=== PATIENT | female | born 2000 | race Caucasian/White ===

== ENCOUNTER 2021-10-30 20:31 | Observation (INO) | payer OTHER, SELFPAY ==
[2021-10-30] VITALS (10 sets, daily range): BP systolic 72–108; BP diastolic 47–62; PULSE 88–109; BMI 26.7
[2021-10-30] MEDS: LACTATED RINGERS 1,000 ML 125 ML IV CONT (21:28)
[2021-10-30] MEDS: ONDANSETRON INJ 4 MG/2 ML VIAL 8 MG IV PUSH (21:28)
[2021-10-30 21:41] LABS: Basophils Percent Auto 0.1 % (0.2-1.2); Hematocrit 35.7 % (37.0-47.0); Hemoglobin 12.3 g/dL (12.0-15.0); Immature Granulocyte Absolute 0.08 K/mm3 (0.00-0.031); Immature Granulocyte Percent A 0.6 % (0-0.5); Lymphocytes Absolute Auto 0.71 K/mm3 (0.9-3.2); Lymphocytes Percent Auto 5.1 % (18.3-44.2); Mean Corpuscular HGB Conc 34.5 g/dl (32-36); Mean Corpuscular Hemoglobin 32.2 pg (26-34); Mean Corpuscular Volume 93.5 fl (80-100); Mean Platelet Volume 11.1 fl (7.4-10.4); Monocytes Absolute Auto 0.6 K/mm3 (0.1-0.6); Neutrophils Absolute Auto 12.5 K/mm3 (1.3-6.7); Neutrophils Percent Auto 90.2 % (45.5-73.1); Platelet Count Result 167 k/mm3 (150-375); Red Blood Count 3.82 M/mm3 (4.2-5.4); Red Cell Distribution Width 12.4 % (11.5-14.5); White Blood Count 13.9 K/mm3 (4.5-10.0)
[2021-10-30 21:53] LABS: Alanine Aminotransferase 20 U/L (6-35); Albumin Level 3.7 g/dL (3.5-5.1); Alkaline Phosphatase 79 U/L (38-126); Anion Gap 8 mmol/L (8-16); Aspartate Amino Transferase 22 U/L (14-36); Bilirubin,Total 1.4 mg/dL (0.2-1.3); Blood Urea Nitrogen 9 mg/dL (7-17); Calcium 8.7 mg/dL (8.4-10.2); Carbon Dioxide 22 mmol/L (22-30); Chloride 105 mmol/L (98-107); Estimated CRCL calculation 131 ml/min; Estimated Glomerular Filt Rate > 60; Glucose 86 mg/dL (65-110); Potassium 3.9 mmol/L (3.4-5.0); Sodium 135 mmol/L (137-145)
[2021-10-30] MEDS: FLUCONAZOLE 150 MG TABLET PO (22:48)
--- NOTE | 2021-10-30 22:51 | OBADM ---
This patient, Ana M Benitez, admitted to the OB room OB Post 117 for observation. Patient/family oriented to hospital policies and general routines including ID bracelet, bed and alarms, visiting hours, pain management, procedures, bathroom and other care routines, personal items, smoking policy, room service/diet, and visiting hours. Patient/Family are encouraged to report perceived risks to care and to ask questions if they do not understand what they are told or what they should do.
--- NOTE | 2021-11-01 07:56 | P.PNOB_ITS ---
OB - Triage/Final Diagnosis Visit Information Date of evaluation: 10/30/21 Reason for evaluation: other (nausea) Comments/Additional reasons for admission: I have assessed the risk for this patient, Ana M Benitez, and determined that she would benefit from obser vation care. Evaluation Laboratory results: Laboratory Tests 10/30/21 10/30/21 21:26 21:26 WBC 13.9 H RBC 3.82 L Hgb 12.3 Hct 35.7 L MCV 93.5 MCH 32.2 MCHC 34.5 RDW 12.4 Plt Count 167 MPV 11.1 H Immature Gran % (Auto) 0.6 H Neut % (Auto) 90.2 H Lymph % (Auto) 5.1 L [place] % (Auto) 4.0 Eos % (Auto) 0.0 Baso % (Auto) 0.1 L Lymph # (Auto) 0.71 L [place] # (Auto) 0.6 Eos # (Auto) 0.0 Baso # (Auto) 0.0 Abs Immat Gran (auto) 0.08 H Absolute Neuts (auto) 12.5 H Absolute Nucleated RBC 0.0 Nucleated RBC % 0.0 Sodium 135 L Potassium 3.9 Chloride 105 Carbon Dioxide 22 Anion Gap 8 BUN 9 Creatinine 0.50 L Estim Creat Clear Calc 131 Estimated GFR > 60 Glucose 86 Calcium 8.7 Total Bilirubin 1.4 H AST 22 ALT 20 Alkaline Phosphatase 79 Total Protein 6.0 L Albumin 3.7
== END 2021-10-30 23:31 | disposition home or self-care (01) ==
PROVIDERS: Admitting Provider Student in an Organized Health Care Education/Training Program; Visit Provider Student in an Organized Health Care Education/Training Program
DX: O26.892 Other specified pregnancy related conditions, second trimester (principal); R11.0 Nausea; Z3A.26 26 weeks gestation of pregnancy
CPT/HCPCS: 36415; 80053; 85025; 96374; A9270; G0378; G0379; J2405; J7120

== ENCOUNTER 2021-12-08 14:34 | Observation (INO) | payer OTHER, SELFPAY ==
[2021-12-08 15:11] VITALS: BP 107/65; PULSE 89
[2021-12-08 15:22] VITALS: BMI 28.8
--- NOTE | 2021-12-08 15:23 | OBADM ---
This patient, Ana M Benitez, admitted to the OB room OB Post 115 for observation. Patient/family oriented to hospital policies and general routines including ID bracelet, bed and alarms, visiting hours, pain management, procedures, bathroom and other care routines, personal items, smoking policy, room service/diet, and visiting hours. Patient/Family are encouraged to report perceived risks to care and to ask questions if they do not understand what they are told or what they should do.
[2021-12-08 15:27] LABS: Appearance Urine Slightly Cloudy (Clear); Bilirubin Urine Negative (Negative); Blood Urine Negative (Negative); Color Urine Yellow (Yellow); Glucose Urine UA Negative (Negative); Ketones Urine Negative (Negative); Leukocyte Esterase Ur Negative LEU/UL (NEGATIVE); Nitrate Urine Negative (Negative); Protein Urine Negative (Negative); Specific Grav Ur 1.015 (1.001-1.035); Urobilinogen Urine 0.2 mg/dL (<2.0); pH Urine 6.5 (5.0-9.0)
[2021-12-08 15:30] LABS: Bacteria Urine Trace /hpf; Mucus Urine Rare /lpf; Squamous Epithelial Cell Urine Many /hpf (Few)
[2021-12-08 15:35] LABS: Add Urine Microscopic? YES
--- NOTE | 2021-12-08 16:02 | P.PNOB_ITS ---
OB - Triage/Final Diagnosis Visit Information Date of evaluation: 12/08/21 Reason for evaluation: threatened labor Comments/Additional reasons for admission: I have assessed the risk for this patient, Ana M Benitez, and determined that she would benefit from observation care. Evaluation Laboratory results: Laboratory Tests 12/08/21 15:04 Urine Color Yellow Urine Appearance Slightly cloudy Urine pH 6.5 Ur Specific [place] 1.015 Urine Protein Negative Urine Glucose (UA) Negative Urine Ketones Negative Ur Blood (Man) Negative Urine Nitrate Negative Urine Bilirubin Negative Urine Urobilinogen 0.2 Ur Leukocyte Esterase Negative Urine RBC 3-5 H Urine WBC 4-6 H Ur Squamous Epith Cells Many H Urine Bacteria Trace Urine Mucus Rare Vital signs: Vital Signs - 24 hr 12/08/21 15:11 12/08/21 15:22 Pulse Rate 89 Blood Pressure 107/65 Oxygen Delivery Room Air
[2021-12-08] MEDS: TERBUTALINE SULFATE 1 MG/ML VIAL 0.25 MG SUB-Q (16:12)
== END 2021-12-08 17:45 | disposition home or self-care (01) ==
PROVIDERS: Admitting Provider Obstetrics & Gynecology; Visit Provider Obstetrics & Gynecology
DX: O47.9 False labor, unspecified (principal); R11.2 Nausea with vomiting, unspecified; O26.899 Other specified pregnancy related conditions, unspecified trimester; Z3A.00 Weeks of gestation of pregnancy not specified
CPT/HCPCS: 81001; 87086; 96372; G0378; G0379; J3105

== ENCOUNTER 2021-12-22 10:48 | Outpatient (RCR) | payer OTHER, SELFPAY ==
[2021-12-22 11:51] VITALS: BP 92/46
== END 2022-02-04 15:10 | disposition home or self-care (01) ==
LOC: ANHOBOP 10:48
PROVIDERS: Visit Provider Student in an Organized Health Care Education/Training Program
DX: O36.8130 Decreased fetal movements, third trimester, not applicable or unspecified (principal); Z3A.00 Weeks of gestation of pregnancy not specified
CPT/HCPCS: 59025

== ENCOUNTER 2022-02-04 06:00 | Inpatient (IN) | payer OTHER, SELFPAY ==
[2022-02-04] VITALS (237 sets, daily range): BP systolic 63–143; BP diastolic 40–108; PULSE 74–194; TEMP 36.9–38; O2SAT 94–100; BMI 32.1
--- NOTE | 2022-02-04 06:09 | P.HP_ITS ---
H&P: HPI History of Present Illness Date/Time: 02/04/22 06:09 Chief Complaint: Section of labor at term Narrative: this is a 21-year-old 1 para 0 whose last menstrual period was 05/07/2021, EDC is 02/11/2022, who presents at 39 weeks gestation for induction of labor secondary to elevated blood pressures. Her had been otherwise uncomplicated. She has mildly elevated blood pressures. [facility] Family History Family History Grandparent Cervical cancer age 63 Sibling H/O: hysterectomy Hyperthyroidism Social History Social History Substance use: never Spiritual care concerns: No Meds Home Medications and Allergies Home Medications Medication Instructions Recorded Confirmed Type ondansetron 4 mg disintegrating 4 mg PO Q6H PRN Nausea And 10/30/21 Rx tablet Vomiting #30 tabs vitamin-ferrous sulfate 1 tablet PO DAILY 10/30/21 10/30/21 History 27 mg iron-folic acid 0.8 mg tablet Allergies Allergy/AdvReac Type Severity Reaction Status Date / Time ciprofloxacin Allergy Hives Verified 01/14/22 12:19 Assessment and Plan Assessment and plan (1) Term : Code(s): Z34.90 - Encounter for supervision of normal , unspecified, unspecified trimester Status: Acute Plan medical induction of labor. Spontaneous vaginal delivery expected. She has an epidural candidate. She is negative for group B strep
--- NOTE | 2022-02-04 06:39 | LDADM ---
This patient, Ana M Marin, was admitted to Labor/Delivery/Recovery 106 on 02/04/22 at 06:00. Plans for labor, pain management and were discussed with patient. Patient/family oriented to hospital policies and general routines including ID bracelet, bed and alarms, visiting hours, pain management, procedures, bathroom and other care routines, personal items, smoking policy, room service/diet and guest tray routines, security routines, and visiting hours. Patient/Family are encouraged to report perceived risks to care and to ask questions if they do not understand what they are told or what they should do. See OBIX for further documentation.
[2022-02-04 07:08] LABS: Basophils Percent Auto 0.2 % (0.2-1.2); Eosinophils Absolute Auto 0.1 K/mm3 (0-0.3); Eosinophils Percent Auto 0.5 % (0-4.4); Hematocrit 35.5 % (37.0-47.0); Hemoglobin 11.8 g/dL (12.0-15.0); Immature Granulocyte Absolute 0.04 K/mm3 (0.00-0.031); Immature Granulocyte Percent A 0.4 % (0-0.5); Lymphocytes Absolute Auto 2.82 K/mm3 (0.9-3.2); Lymphocytes Percent Auto 28.7 % (18.3-44.2); Mean Corpuscular HGB Conc 33.2 g/dl (32-36); Mean Corpuscular Hemoglobin 28.9 pg (26-34); Mean Platelet Volume 12.6 fl (7.4-10.4); Monocytes Absolute Auto 1.1 K/mm3 (0.1-0.6); Monocytes Percent Auto 11.2 % (2.6-8.5); Neutrophils Absolute Auto 5.8 K/mm3 (1.3-6.7); Platelet Count Result 153 k/mm3 (150-375); Red Blood Count 4.08 M/mm3 (4.2-5.4); Red Cell Distribution Width 13.7 % (11.5-14.5); White Blood Count 9.8 K/mm3 (4.5-10.0)
[2022-02-04] MEDS: ONDANSETRON INJ 4 MG/2 ML VIAL IV PUSH ×3 (07:08→21:08)
[2022-02-04] MEDS: OXYTOCIN 30 UNITS/NS 500 ML 30 UNITS/500 ML BAG 6 UNITS IV CONT (07:11)
[2022-02-04] MEDS: LACTATED RINGERS 1,000 ML 125 ML IV CONT ×3 (07:11→21:22)
[2022-02-04 08:48] LABS: Rapid Plasma Reagin Non-Reactive (NonReactive)
--- NOTE | 2022-02-04 11:17 | PM.OBPNLAB ---
Pain Control Date/time seen: 02/04/22 11:17 Pain control: tolerating well Pelvic Exam Dilation (cm): 3 Effacement (%): 80 station: -1 Amniotic membrane status: Leaking Contractions Monitor mode: Internal Contraction frequency: 3
--- NOTE | 2022-02-04 17:49 | PM.OBPNLAB ---
Pain Control Date/time seen: 02/04/22 17:49 Pain control: tolerating well and epidural Pelvic Exam Dilation (cm): 5 Effacement (%): 80 station: -1 Amniotic membrane status: Leaking Contractions Monitor mode: Internal Contraction frequency: 3
[2022-02-04] MEDS: CALCIUM CARBONATE (TUMS) 500 MG (200 MG ELEMENTAL) PO (18:27)
[2022-02-04] MEDS: AMPICILLIN 1 GM/NS 50 ML 1 GM/50 ML BAG IVPB (20:47)
--- NOTE | 2022-02-04 22:52 | P.PCNOB_ITS ---
OB - Delivery Note Procedure Delivery date: 02/04/22 Procedure: mil Induction method: AROM Delivery augmentation: Pitocin Delivery monitor: External FHT and Internal Uterine Route of delivery: Episiotomy description: None Laceration Description: Perineal - 1st Degree Delivery repair: vicryl Specimen: No Quantitative Blood Loss (ml): 159 Anesthesia type: Epidural Disposition: Floor Merino Baby Date of : 02/04/22 Time of : 22:40 Weeks of gestation at delivery: 40 Infant gender: Female presentation: vertex position: Right Occiput Anterior Placenta delivery description: Spontaneous Cord Vessel Description: 3 Vessels, Nuchal Cord and Loose
[2022-02-04] MEDS: OXYTOCIN 30 UNITS/NS 500 ML 30 UNITS/500 ML BAG 125 UNITS IV CONT (23:05)
--- NOTE | 2022-02-05 01:15 | PC.NURSE ---
Patient transferred to post room #281 per wheelchair from labor and delivery. Support person present. Oriented to unit, room, information board, rooming in, admission packet and security measures. Patient verbalizes understanding.
[2022-02-05 01:20] VITALS: BP 116/66; PULSE 85; RESP 18; TEMP 36.6
[2022-02-05] MEDS: ACETAMINOPHEN 325 MG TABLET 650 MG PO ×3 (01:29→21:17)
[2022-02-05 04:15] VITALS: BP 115/84; PULSE 92; RESP 20; TEMP 36.6
[2022-02-05 05:34] LABS: Hematocrit 32.3 % (37.0-47.0); Hemoglobin 10.6 g/dL (12.0-15.0)
--- NOTE | 2022-02-05 07:45 | PM.OBPNVD ---
OB - PN: Subj Subjective Date/time seen: 02/05/22 07:45 Patient comments: no complaints and pain well controlled baby status: doing well and nursing well OB - PN: Obj Data Labs CBC & Chem 7: 02/05/22 04:17 Labs: Laboratory Results - last 24 hr 02/04/22 02/04/22 02/05/22 06:36 06:36 04:17 Hgb 10.6 L Hct 32.3 L RPR Non-reactive Blood Type B Positive Antibody Screen Negative OB - PN A/P Plan day: 1 Plan: routine care Time Spent With Patient Time: Total time spent is greater than 50% in coordination of care (as documented) at patient's floor/unit and/or counseling patient: Time with patient: less than 15 minutes
[2022-02-05 08:30] VITALS: BP 119/78; PULSE 99; RESP 20; TEMP 36.4; O2SAT 100
[2022-02-05] MEDS: MULTIVIT/MIN/PREN/FOL AC/IRON TABLET 1 TAB PO (09:21)
[2022-02-05] MEDS: LANOLIN (LANSINOH) 7.5 GM CREAM 1 APPLIC TOPICAL (09:22)
[2022-02-05 11:45] VITALS: BP 133/72; PULSE 89; RESP 18; TEMP 37.2; O2SAT 100
--- NOTE | 2022-02-05 12:51 | WPDANLDPN2 ---
Anes-Prog Note L&D Date/Time: 02/05/22 12:51 Comfortable throughout: labor and delivery Neuraxial method: epidural Epidural/Spinal procedure site: clean & non-tender Neuro status: Neuro function grossly intact. Cardiovascular status: normal Respiratory status: normal Airway patency: baseline Mental status: baseline Post-Op hydration status: normal Vital Signs: Last Vital Signs Temp 36.4 C 02/05/22 08:30 Pulse 99 02/05/22 08:30 Resp 20 02/05/22 08:30 BP 119/78 02/05/22 08:30 Pulse Ox 100 02/05/22 08:30 O2 Del Method Room Air 02/04/22 06:37 Pain score (VAS): 06/28 I/O: Intake & Output 02/04/22 02/05/22 02/05/22 23:59 07:59 15:59 Intake Total 1000 500 Output Total 287 Balance 1000 213 Post-procedural complaints: none Patient feedback: Patient satisfied with anesthetic care.
[2022-02-05 15:30] VITALS: BP 128/75; PULSE 85; RESP 16; TEMP 37.1; O2SAT 100
[2022-02-05] MEDS: IBUPROFEN 600 MG TABLET PO (16:12)
[2022-02-05 19:45] VITALS: BP 134/68; PULSE 83; RESP 16; TEMP 36.8; O2SAT 100
--- NOTE | 2022-02-06 06:55 | PM.DS ---
DS: Admitting Diagnosis Discharge Date 02/06/2022 Admitting Diagnosis term DS: Discharge Diagnosis Discharge Diagnosis (1) Term : Code(s): Z34.90 - Encounter for supervision of normal , unspecified, unspecified trimester Status: Acute DS: Summary Hospital Course Reason for hospitalization: patient was admitted in active labor. She underwent spontaneous vaginal delivery. She was positive for group B strep and was prophylaxed as such. Her hospital course was unremarkable. Hospital Course: She underwent spontaneous vaginal delivery with the group B strep prophylaxis her hospital course unremarkable. She remained afebrile. She was up, voiding without difficulty, ambulating, breast-feeding, [place] without complaints. Time Spent with Patient Time attestation: Total time spent providing and/or coordinating discharge services: Discharge Plan Discharge Attending physician on discharge: Gordon Mendez Discharging Clinician: Gordon Mendez Patient Disposition: Home, Self-Care Activity: may shower, no straining and pelvic rest Diet: heart healthy Patient Instructions: Antibiotic Form Stand Alone Forms: General Discharge Information Follow-up/Referrals: Gordon Mendez MD [Physician] - Discharge Medications: Continued vit-ferrous sulfat-FA 27 mg iron- 0.8 mg Tablet 1 tablet PO DAILY ondansetron 4 mg Tablet,Disintegrating 4 mg PO Q6H PRN (Reason: Nausea And Vomiting) Qty: 30 0RF Date of admission: 02/04/22 06:00 Primary Care Provider: UNKNOWN,DOCTOR Admitting Provider: Juventino Blunt Attending physician on admission: Juventino Blunt Condition: Stable
--- NOTE | 2022-02-06 07:04 | PM.OBPNVD ---
OB - PN: Subj Subjective Date/time seen: 02/06/22 07:04 Patient comments: no complaints and pain well controlled baby status: doing well and nursing well OB - PN: Obj Data Labs CBC & Chem 7: 02/05/22 04:17 OB - PN A/P Plan day: 2 Plan: routine care, discharge home and follow up 6 weeks Time Spent With Patient Time: Total time spent is greater than 50% in coordination of care (as documented) at patient's floor/unit and/or counseling patient: Time with patient: less than 15 minutes
[2022-02-06 07:30] VITALS: BP 125/64; PULSE 88; RESP 16; TEMP 36.6; O2SAT 100
[2022-02-06] MEDS: IBUPROFEN 600 MG TABLET PO (07:33)
[2022-02-06] MEDS: MULTIVIT/MIN/PREN/FOL AC/IRON TABLET 1 TAB PO (07:33)
[2022-02-07 08:48] VITALS: BP 124/59; PULSE 82; RESP 20; TEMP 37.2; O2SAT 99
== END 2022-02-06 12:20 | disposition home or self-care (01) | DRG 560 ==
LOC: ANHOB2 02-06 09:54 → ANHLDR 02-07 12:32
PROVIDERS: Admitting Provider Obstetrics & Gynecology; Visit Provider Obstetrics & Gynecology
DX: O99.824 Streptococcus B carrier state complicating childbirth (principal); O69.81X0 Labor and delivery complicated by cord around neck, without compression, not applicable or unspecified; O70.0 First degree perineal laceration during delivery; O76 Abnormality in fetal heart rate and rhythm complicating labor and delivery; Z3A.39 39 weeks gestation of pregnancy; Z37.0 Single live birth
CPT/HCPCS: 36415; 85014; 85018; 85025; 86592; 86850; 86900; 86901; A9270; J0131; J0290; J2405; J2590; J2795; J7120

== ENCOUNTER 2023-07-18 08:38 | Emergency (ER) | payer OTHER, SELFPAY ==
[2023-07-18 08:42] VITALS: BP 121/73; PULSE 84; RESP 16; TEMP 36.2; O2SAT 100
--- NOTE | 2023-07-18 08:45 | ED.GENADULT ---
HPI - General Adult General Chief complaint: Nausea/Vomiting/Diarrhea Stated complaint: vomiting, 10 wk Time Seen by Provider: 07/18/23 08:43 History of Present Illness HPI narrative: 23-year-old female presented emergency department for evaluation nausea and vomiting. Patient is 10 weeks does follow-up with Dr. Andrew Don. Patient states that she has had some issues with nausea and vomiting but they have worsened over the course of the last day or so. Patient denies any associated abdominal pain denies any vaginal bleeding vaginal discharge. Related Data Home Medications Medication Instructions Recorded Confirmed vitamin-ferrous sulfate 1 tablet PO DAILY 10/30/21 02/04/22 27 mg iron-folic acid 0.8 mg tablet Allergies Allergy/AdvReac Type Severity Reaction Status Date / Time ciprofloxacin Allergy Hives Verified 01/14/22 12:19 Review of Systems Review of Systems: All systems reviewed & are unremarkable except as noted in HPI and below PMFSH Family History Family History Grandparent Cervical cancer age 63 Sibling H/O: hysterectomy Hyperthyroidism Social History Social History Smoking status: Never smoker Substance use: never Spiritual care concerns: No Exam Narrative: APPEARANCE: Well appearing, no pain, no distress, well-nourished. HEAD: normocephalic, atraumatic. EYES: PERRLA/EOMI, conjunctivae clear. NOSE: Normal no drainage EARS:TMS clear with good light reflex. THROAT: Pharynx clear, no exudate. NECK: Supple. No adenopathy, no masses. RESPIRATORY: Airway patent, respirations nonlabored. Clear to auscultation bilaterally, no rales, rhonchi, wheezing. CARDIOVASCULAR: Regular rate and rhythm without murmurs rubs or gallops. ABDOMINAL: Soft, nontender, nondistended, normal bowel sounds MUSCULOSKELETAL: Moves all extremities. Strength/ROM intact, No edema, No calf tenderness. NEURO: Alert. Cranial nerves II through XII intact. Grossly intact SKIN: Warm, dry. Normal Color Course Course Emergency Course: 23-year-old female presenting emergency department for evaluation of persistent nausea and vomiting. Patient is tolerating p.o. and was able to eat crackers. Patient afebrile with no leukocytosis and a stable hemoglobin no significant abnormalities on her CMP urine was concerning for urinary tract infection and urine cultures pending. Patient was started on Rocephin in the ED and patient will be discharged home with Keflex. Patient was encouraged to have close follow-up with OB Gyne. Patient will also be discharged home with some Zofran. All questions concerns were addressed patient was well-appearing at time of discharge. Vital Signs Vital signs: Vital Signs Temperature 97.1 F L 07/18/23 08:42 Pulse Rate 84 07/18/23 08:42 Respiratory Rate 16 07/18/23 08:42 Blood Pressure 121/73 07/18/23 08:42 Pulse Oximetry 100 07/18/23 08:42 Oxygen Delivery Room Air 07/18/23 08:42 Temperature 98.0 F 07/18/23 10:45 Pulse Rate 62 07/18/23 11:28 Respiratory Rate 15 07/18/23 11:28 Blood Pressure 110/65 07/18/23 11:28 Pulse Oximetry 100 07/18/23 11:28 Oxygen Delivery Room Air 07/18/23 08:42 Medical Decision Making Differential Diagnosis Differential Diagnosis: UTI, hyperemesis gravidarum, dehydration Vital Signs Vital Signs: Vital Signs Temperature 97.1 F L 07/18/23 08:42 Pulse Rate 84 07/18/23 08:42 Respiratory Rate 16 07/18/23 08:42 Blood Pressure 121/73 07/18/23 08:42 Pulse Oximetry 100 07/18/23 08:42 Oxygen Delivery Room Air 07/18/23 08:42 Temperature 98.0 F 07/18/23 10:45 Pulse Rate 62 07/18/23 11:28 Respiratory Rate 15 07/18/23 11:28 Blood Pressure 110/65 07/18/23 11:28 Pulse Oximetry 100 07/18/23 11:28 Oxygen Delivery Room Air 07/18/23 08:42
[2023-07-18 08:55] LABS: Basophils Percent Auto 0.4 % (0.2-1.2); Eosinophils Percent Auto 0.2 % (0-4.4); Hematocrit 39.7 % (37.0-47.0); Hemoglobin 13.6 g/dL (12.0-15.0); Immature Granulocyte Absolute 0.02 K/mm3 (0.00-0.031); Immature Granulocyte Percent A 0.2 % (0-0.5); Lymphocytes Absolute Auto 1.51 K/mm3 (0.9-3.2); Lymphocytes Percent Auto 18.6 % (18.3-44.2); Mean Corpuscular HGB Conc 34.3 g/dl (32-36); Mean Corpuscular Hemoglobin 30.1 pg (26-34); Mean Corpuscular Volume 87.8 fl (80-100); Mean Platelet Volume 11.3 fl (7.4-10.4); Monocytes Absolute Auto 0.5 K/mm3 (0.1-0.6); Monocytes Percent Auto 5.5 % (2.6-8.5); Neutrophils Absolute Auto 6.1 K/mm3 (1.3-6.7); Neutrophils Percent Auto 75.1 % (45.5-73.1); Platelet Count Result 185 k/mm3 (150-375); Red Blood Count 4.52 M/mm3 (4.2-5.4); Red Cell Distribution Width 12.4 % (11.5-14.5); White Blood Count 8.1 K/mm3 (4.5-10.0)
[2023-07-18 09:07] LABS: Alanine Aminotransferase 21 U/L (6-35); Albumin Level 4.5 g/dL (3.5-5.1); Alkaline Phosphatase 59 U/L (38-126); Anion Gap 9 mmol/L (8-16); Aspartate Amino Transferase 23 U/L (14-36); Bilirubin,Total 0.6 mg/dL (0.2-1.3); Blood Urea Nitrogen 7 mg/dL (7-17); Calcium 9.6 mg/dL (8.4-10.2); Carbon Dioxide 22 mmol/L (22-30); Chloride 106 mmol/L (98-107); Estimated Glomerular Filt Rate > 60; Glucose 93 mg/dL (65-110); Lipase 258 U/L (23-300); Potassium 4.2 mmol/L (3.4-5.0); Sodium 137 mmol/L (137-145)
[2023-07-18 09:11] LABS: Appearance Urine Cloudy (Clear); Bacteria Urine 4+ /hpf; Bilirubin Urine 1+ (Negative); Blood Urine Negative (Negative); Color Urine Dark Yellow (Yellow); Glucose Urine UA Negative (Negative); Ketones Urine 4+ mg/dL (Negative); Leukocyte Esterase Ur Trace LEU/UL (Negative); Need Manual Microscopic Reviewed; Nitrate Urine Negative (Negative); Non Pathogenic Casts >20; Protein Urine 1+ mg/dL (Negative); Specific Grav Ur 1.032 (1.001-1.035); Squamous Epithelial Cell Urine Many /hpf (Few); WBC Urine 21-50 /hpf; pH Urine 5.5 (5.0-9.0)
[2023-07-18 09:12] LABS: Add Urine Microscopic? YES
[2023-07-18] MEDS: ACETAMINOPHEN 500 MG TABLET 1000 MG PO (09:44)
[2023-07-18] MEDS: SODIUM CHLORIDE 0.9% IV 1,000 ML 999 ML IV CONT (09:45)
[2023-07-18] MEDS: ONDANSETRON INJ 4 MG/2 ML VIAL IV PUSH (09:45)
[2023-07-18 09:48] VITALS: BP 103/59; PULSE 79; RESP 16; TEMP 36.6; O2SAT 100
[2023-07-18 10:45] VITALS: BP 106/68; PULSE 78; RESP 16; TEMP 36.7; O2SAT 100
[2023-07-18 11:28] VITALS: BP 110/65; PULSE 62; RESP 15; O2SAT 100
== END 2023-07-18 11:29 | disposition home or self-care (01) ==
PROVIDERS: Emergency Provider Emergency Medicine; PCP Obstetrics & Gynecology
DX: O23.41 Unspecified infection of urinary tract in pregnancy, first trimester (principal); N39.0 Urinary tract infection, site not specified; O21.9 Vomiting of pregnancy, unspecified; Z3A.10 10 weeks gestation of pregnancy
CPT/HCPCS: 36415; 80053; 81001; 83690; 85025; 87086; 96365; 96375; 99284; A9270; J0696; J2405; J7030

== ENCOUNTER 2023-08-08 11:30 | Observation (INO) | payer OTHER, SELFPAY ==
[2023-08-08] VITALS (8 sets, daily range): BP systolic 92–128; BP diastolic 51–67; PULSE 74–88; BMI 21.6
[2023-08-08] MEDS: DEXTROSE 5%/LACTATED RINGERS 1,000 ML 999 ML IV CONT (12:16)
[2023-08-08] MEDS: SCOPOLAMINE 1 MG PATCH 1 PATCH TRANSDERM (12:16)
[2023-08-08] MEDS: ONDANSETRON INJ 4 MG/2 ML VIAL IV PUSH (12:16)
--- NOTE | 2023-08-08 12:23 | OBADM ---
This patient, Ana M Marin, admitted to the OB room OB Post 113 for observation. Patient/family oriented to hospital policies and general routines including ID bracelet, bed and alarms, visiting hours, pain management, procedures, bathroom and other care routines, personal items, smoking policy, room service/diet, and visiting hours. Patient/Family are encouraged to report perceived risks to care and to ask questions if they do not understand what they are told or what they should do.
[2023-08-08 12:42] LABS: Basophils Percent Auto 0.1 % (0.2-1.2); Eosinophils Percent Auto 0.1 % (0-4.4); Hematocrit 37.1 % (37.0-47.0); Immature Granulocyte Absolute 0.03 K/mm3 (0.00-0.031); Immature Granulocyte Percent A 0.4 % (0-0.5); Lymphocytes Absolute Auto 1.46 K/mm3 (0.9-3.2); Lymphocytes Percent Auto 19.5 % (18.3-44.2); Mean Corpuscular Hemoglobin 30.7 pg (26-34); Mean Corpuscular Volume 87.5 fl (80-100); Mean Platelet Volume 11.3 fl (7.4-10.4); Monocytes Absolute Auto 0.5 K/mm3 (0.1-0.6); Monocytes Percent Auto 6.5 % (2.6-8.5); Neutrophils Absolute Auto 5.5 K/mm3 (1.3-6.7); Neutrophils Percent Auto 73.4 % (45.5-73.1); Platelet Count Result 184 k/mm3 (150-375); Red Blood Count 4.24 M/mm3 (4.2-5.4); White Blood Count 7.5 K/mm3 (4.5-10.0)
[2023-08-08 12:44] LABS: Alanine Aminotransferase 102 U/L (6-35); Albumin Level 3.9 g/dL (3.5-5.1); Alkaline Phosphatase 53 U/L (38-126); Anion Gap 5 mmol/L (8-16); Aspartate Amino Transferase 42 U/L (14-36); Blood Urea Nitrogen 4 mg/dL (7-17); Carbon Dioxide 24 mmol/L (22-30); Chloride 108 mmol/L (98-107); Estimated CRCL calculation 157 ml/min; Estimated Glomerular Filt Rate > 60; Glucose 82 mg/dL (65-110); Potassium 3.8 mmol/L (3.4-5.0); Sodium 137 mmol/L (137-145)
--- NOTE | 2023-08-08 12:53 | PM.IMHP ---
H&P: HPI History of Present Illness Date/Time: 08/08/23 12:53 Chief Complaint: Nausea during Narrative: is a 23 year 2 para 1 about 13 weeks gestation with severe hyperemesis gravidarum. She has been able to keep anything down. She has noted normal intrauterine . [facility] Family History Family History Grandparent Cervical cancer age 63 Sibling H/O: hysterectomy Hyperthyroidism Social History Social History Smoking status: Never smoker Substance use: never Spiritual care concerns: No Meds Home Medications and Allergies Home Medications Medication Instructions Recorded Confirmed Type ondansetron 4 mg disintegrating 4 mg PO Q6H PRN Nausea And 10/30/21 02/04/22 Rx tablet Vomiting #30 tabs vitamin-ferrous sulfate 1 tablet PO DAILY 10/30/21 02/04/22 History 27 mg iron-folic acid 0.8 mg tablet cephalexin 500 mg capsule 500 mg PO Q8H 7 days #21 caps 07/18/23 Rx ondansetron 4 mg disintegrating 4 mg PO Q8H PRN nausea and 07/18/23 Rx tablet vomiting #20 tabs Allergies Allergy/AdvReac Type Severity Reaction Status Date / Time ciprofloxacin Allergy Hives Verified 01/14/22 12:19 Vital Signs Vital Signs - 24 hr 08/08/23 11:41 08/08/23 11:45 08/08/23 12:00 Pulse Rate 78 88 88 Blood Pressure 128/67 115/60 110/60 08/08/23 12:30 08/08/23 12:45 Pulse Rate 77 80 Blood Pressure 108/53 L 92/63 L Exam Const: General: cooperative and comfortable Nutritional Appearance: average body habitus Orientation/consciousness: oriented to person, oriented to place and oriented to time HENMT: Face/Nose/Sinus: Normal nasal mucous membranes and turbinates present ( Dry) Resp: Effort & Inspection: normal respiratory effort Cardio: Rate: regular rate Rhythm: regular rhythm Heart sounds: S1 normal heart sound present and S2 normal heart sound present GI: Inspection: normal to inspection H&P: Results Labs Labs: Short CBC 08/08/23 Range/Units 12:05 WBC 7.5 (4.5-10.0) K/mm3 Hgb 13.0 (12.0-15.0) g/dL Hct 37.1 (37.0-47.0) % Plt Count 184 (150-375) k/mm3 BMP 08/08/23 12:05 Sodium 137 Potassium 3.8 Chloride 108 H Carbon Dioxide 24 BUN 4 L Creatinine 0.40 L Glucose 82 Calcium 9.0 Liver Function 08/08/23 Range/Units 12:05 Total Bilirubin 1.0 (0.2-1.3) mg/dL AST 42 H (14-36) U/L ALT 102 H (6-35) U/L Alkaline Phosphatase 53 (38-126) U/L Albumin 3.9 (3.5-5.1) g/dL Assessment and Plan Assessment and plan (1) Hyperemesis gravidarum: Code(s): O21.0 - Mild hyperemesis gravidarum Status: Acute Plan IV hydration and support
--- NOTE | 2023-08-08 13:35 | PC.NURSE ---
1245--Dr. Andrew Don at [facility]. [facility]'s doppled. Plan of care discussed.
[2023-08-08 14:29] LABS: Appearance Urine Cloudy (Clear); Bacteria Urine 1+ /hpf; Bilirubin Urine Negative (Negative); Blood Urine Negative (Negative); Color Urine Yellow (Yellow); Glucose Urine UA 3+ mg/dL (Negative); Ketones Urine 1+ mg/dL (Negative); Leukocyte Esterase Ur Negative LEU/UL (Negative); Nitrate Urine Negative (Negative); Non Pathogenic Casts 0-2; Protein Urine Negative (Negative); RBC Urine 0-2 /hpf (0-2); Specific Grav Ur 1.023 (1.001-1.035); Squamous Epithelial Cell Urine Moderate /hpf (Few); Urobilinogen Urine 0.2 mg/dL (<2.0); WBC Urine 0-5 /hpf; pH Urine 7.5 (5.0-9.0)
[2023-08-08 14:43] LABS: Add Urine Microscopic? YES
--- NOTE | 2023-08-08 15:28 | PC.NURSE ---
1520--Pt reports feeling better-has kept down solid food with no nausea and requests to be discharged.
--- NOTE | 2023-08-10 06:47 | PM.OBTRLD ---
OB - Triage/Final Diagnosis Visit Information Date of evaluation: 08/09/23 Reason for evaluation: other (hyperemesis gravidarum) Comments/Additional reasons for admission: I have assessed the risk for this patient, Ana M Marin, and determined that she would benefit from observation care. Evaluation Laboratory results: Laboratory Tests 08/08/23 12:05 WBC 7.5 RBC 4.24 Hgb 13.0 Hct 37.1 MCV 87.5 MCH 30.7 MCHC 35.0 RDW 13.0 Plt Count 184 MPV 11.3 H Immature Gran % (Auto) 0.4 Neut % (Auto) 73.4 H Lymph % (Auto) 19.5 [place] % (Auto) 6.5 Eos % (Auto) 0.1 Baso % (Auto) 0.1 L Lymph # (Auto) 1.46 [place] # (Auto) 0.5 Eos # (Auto) 0.0 Baso # (Auto) 0.0 Abs Immat Gran (auto) 0.03 Absolute Neuts (auto) 5.5 Absolute Nucleated RBC 0.0 Nucleated RBC % 0.0 Sodium 137 Potassium 3.8 Chloride 108 H Carbon Dioxide 24 Anion Gap 5 L BUN 4 L Creatinine 0.40 L Estim Creat Clear Calc 157 Estimated GFR > 60 Glucose 82 Calcium 9.0 Total Bilirubin 1.0 AST 42 H ALT 102 H Alkaline Phosphatase 53 Total Protein 7.0 Albumin 3.9 Urine Color Yellow Urine Appearance Cloudy H Urine pH 7.5 Ur Specific [place] 1.023 Urine Protein Negative Urine Glucose (UA) 3+ H Urine Ketones 1+ H Ur Blood (Man) Negative Urine Nitrate Negative Urine Bilirubin Negative Urine Urobilinogen 0.2 Leukocyte Esterase Rfl Negative Urine RBC 0-2 Urine WBC 0-5 Ur Squamous Epith Cells Moderate Urine Bacteria 1+ H Urine Casts 0-2
== END 2023-08-08 15:45 | disposition home or self-care (01) ==
PROVIDERS: Admitting Provider Obstetrics & Gynecology; Visit Provider Obstetrics & Gynecology
DX: O21.0 Mild hyperemesis gravidarum (principal); Z3A.13 13 weeks gestation of pregnancy
CPT/HCPCS: 36415; 80053; 81001; 85025; 96374; A9270; G0378; G0379; J2405; J7121

== ENCOUNTER 2023-12-14 14:03 | Outpatient (CLI) | payer OTHER, SELFPAY ==
[2023-12-14 14:30] VITALS: BP 119/65; PULSE 104
[2023-12-14 14:43] LABS: Appearance Urine Clear (Clear); Bilirubin Urine Negative (Negative); Blood Urine Negative (Negative); Color Urine Yellow (Yellow); Glucose Urine UA Negative (Negative); Ketones Urine Negative (Negative); Leukocyte Esterase Ur Negative LEU/UL (Negative); Nitrate Urine Negative (Negative); Protein Urine Negative (Negative); Specific Grav Ur 1.019 (1.001-1.035); pH Urine 6.5 (5.0-9.0)
[2023-12-14 14:44] LABS: Add Urine Microscopic? NO
[2023-12-14 14:45] VITALS: BMI 29.0
[2023-12-14 14:46] VITALS: BP 98/76; PULSE 104
--- NOTE | 2023-12-14 14:46 | LDADM ---
This patient, Ana M Marin, was admitted to OB Post 115 on at 14:03. Plans for labor, pain management and were discussed with patient. Patient/family oriented to hospital policies and general routines including ID bracelet, bed and alarms, visiting hours, pain management, procedures, bathroom and other care routines, personal items, smoking policy, room service/diet and guest tray routines, security routines, and visiting hours. Patient/Family are encouraged to report perceived risks to care and to ask questions if they do not understand what they are told or what they should do. See OBIX for further documentation.
--- NOTE | 2023-12-14 14:59 | PC.NURSE ---
Patient admitted to L&D observation at 1400 with complaints of experiencing a large gush of fluid at 1340 followed by intermittent back pain that she rates a 6/10 on the pain scale. Patient has no complications with this . ROM+ and UA sent on patient. ROM+ negative and no fluid was noted. UA was normal. Called Dr. Andrew Don with patient complaints and results. Verbal orders received to discharge patient to home and RN may give patient Tylenol and one time dose of Flexeril before discharge. RN discussed medication options with patient. Patient states she feels much better and declines Tylenol and Flexeril at this time. Patient states she would like to go home and will use heat intermittently on back if pain persists. Patient has no questions at this time.
== END 2023-12-14 15:07 ==
LOC: ANHOBOP 14:04 → ANHOBPP 14:07
PROVIDERS: Visit Provider Obstetrics & Gynecology
DX: O41.8X90 Other specified disorders of amniotic fluid and membranes, unspecified trimester, not applicable or unspecified (principal); Z3A.00 Weeks of gestation of pregnancy not specified
CPT/HCPCS: 81003; 84112; 99199

== ENCOUNTER 2024-02-01 04:57 | Inpatient (IN) | payer OTHER, SELFPAY ==
[2024-02-01] VITALS (275 sets, daily range): BP systolic 51–129; BP diastolic 34–106; PULSE 25–171; RESP 18; TEMP 36.6–37.1; O2SAT 71–100; BMI 30.4
[2024-02-01 06:02] LABS: Basophils Percent Auto 0.3 % (0.2-1.2); Eosinophils Absolute Auto 0.1 K/mm3 (0-0.3); Eosinophils Percent Auto 0.7 % (0-4.4); Hematocrit 38.4 % (37.0-47.0); Hemoglobin 12.4 g/dL (12.0-15.0); Immature Granulocyte Absolute 0.05 K/mm3 (0.00-0.031); Immature Granulocyte Percent A 0.5 % (0-0.5); Lymphocytes Absolute Auto 2.53 K/mm3 (0.9-3.2); Lymphocytes Percent Auto 25.4 % (18.3-44.2); Mean Corpuscular HGB Conc 32.3 g/dl (32-36); Mean Corpuscular Volume 89.7 fl (80-100); Mean Platelet Volume 11.2 fl (7.4-10.4); Monocytes Percent Auto 10.4 % (2.6-8.5); Neutrophils Absolute Auto 6.3 K/mm3 (1.3-6.7); Neutrophils Percent Auto 62.7 % (45.5-73.1); Platelet Count Result 164 k/mm3 (150-375); Red Blood Count 4.28 M/mm3 (4.2-5.4); Red Cell Distribution Width 13.8 % (11.5-14.5)
[2024-02-01] MEDS: CALCIUM CARBONATE (TUMS) 500 MG (200 MG ELEMENTAL) PO (06:41)
[2024-02-01 06:53] LABS: HIV 1/2 Ab P24 Ag Result Negative (Negative)
--- NOTE | 2024-02-01 07:03 | WPDANESEPP ---
Anes - Eval Pre Procedure Procedure: labor epidural Date/Time: 02/01/24 07:03 Surgeon: jennifer Preop Diagnosis: pain during labor Pre Op Diagnosis: IOL Patient Data Age: 23 Gender: F Height: 1.65 m Weight: 83 kg Last Vital Signs Temp 36.6 C 02/01/24 06:41 Pulse 88 02/01/24 07:00 BP 101/59 L 02/01/24 07:00 Pulse Ox 98 02/01/24 06:59 O2 Del Method Room Air 02/01/24 05:37 Allergies Allergy/AdvReac Type Severity Reaction Status Date / Time ciprofloxacin Allergy Hives Verified 01/13/24 14:44 Home Medications Medication Instructions Recorded Confirmed Type vitamin-ferrous sulfate 1 tablet PO DAILY 10/30/21 01/13/24 History 27 mg iron-folic acid 0.8 mg tablet Laboratory Tests 02/01/24 05:53 WBC 10.0 K/mm3 (4.5-10.0) RBC 4.28 M/mm3 (4.2-5.4) Hgb 12.4 g/dL (12.0-15.0) Hct 38.4 % (37.0-47.0) MCV 89.7 fl (80-100) MCH 29.0 pg (26-34) MCHC 32.3 g/dl (32-36) RDW 13.8 % (11.5-14.5) Plt Count 164 k/mm3 (150-375) MPV 11.2 H fl (7.4-10.4) Immature Gran % (Auto) 0.5 % (0-0.5) Neut % (Auto) 62.7 % (45.5-73.1) Lymph % (Auto) 25.4 % (18.3-44.2) [place] % (Auto) 10.4 H % (2.6-8.5) Eos % (Auto) 0.7 % (0-4.4) Baso % (Auto) 0.3 % (0.2-1.2) Lymph # (Auto) 2.53 K/mm3 (0.9-3.2) [place] # (Auto) 1.0 H K/mm3 (0.1-0.6) Eos # (Auto) 0.1 K/mm3 (0-0.3) Baso # (Auto) 0.0 K/mm3 (0.0-0.1) Abs Immat Gran (auto) 0.05 H K/mm3 (0.00-0.031) Absolute Neuts (auto) 6.3 K/mm3 (1.3-6.7) Absolute Nucleated RBC 0.000 K/mm3 (0.0-0.012) Nucleated RBC % 0.0 % (0.0-0.2) RPR Pending HIV 1&2 Ab/P24 Ag 4thGn Negative (Negative) Patient hx anesthesia problems: none Family hx anesthesia problems: none Results Review: All pre-operative results and documents have been reviewed as part of the pre-operative evaluation. REPLACED BY [facility] Past Medical History Medical History (Updated 02/01/24 @ 07:04 by Celia Tesfaye CRNA) Anxiety Migraines, neuralgic Obesity (BMI 30-39.9) Family History Family History Grandparent Cervical cancer age 63 Sibling H/O: hysterectomy Hyperthyroidism Social History Social History Smoking status: Never smoker Substance use: never Do You Feel Safe in your Home?: Yes Lack of Transportation: No Lack of Food: Never True Current Housing: I Have Housing Concerned About Future Housing: No Difficulty Paying Gas/Electric Bills: No Difficulty Paying for Meds: No Currently Unemployed: No Education: High School Diploma/GED Difficulty w/ Childcare or Family Care: No Spiritual care concerns: No Exam Day of Procedure 02/01/24 07:03
[2024-02-01] MEDS: OXYTOCIN 30 UNITS/NS 500 ML 30 UNITS/500 ML BAG IV CONT (07:28)
[2024-02-01] MEDS: LACTATED RINGERS 1,000 ML 125 ML IV CONT ×3 (07:29→11:00)
--- NOTE | 2024-02-01 07:35 | PM.IMHP ---
H&P: HPI History of Present Illness Date/Time: 02/01/24 07:35 Chief Complaint: Term Narrative: this is a 23-year-old 2 para 1 whose last menstrual period was 04/17/2010 and EDC is 02/08/2024, presents at 39 weeks gestation for induction of labor. Her cervix is favorable. She is negative for B strep. [facility] Past Medical History Medical History Anxiety Migraines, neuralgic Obesity (BMI 30-39.9) Family History Family History Grandparent Cervical cancer age 63 Sibling H/O: hysterectomy Hyperthyroidism Social History Social History Smoking status: Never smoker Substance use: never Do You Feel Safe in your Home?: Yes Lack of Transportation: No Lack of Food: Never True Current Housing: I Have Housing Concerned About Future Housing: No Difficulty Paying Gas/Electric Bills: No Difficulty Paying for Meds: No Currently Unemployed: No Education: High School Diploma/GED Difficulty w/ Childcare or Family Care: No Spiritual care concerns: No Meds Home Medications and Allergies Home Medications Medication Instructions Recorded Confirmed Type vitamin-ferrous sulfate 1 tablet PO DAILY 10/30/21 01/13/24 History 27 mg iron-folic acid 0.8 mg tablet Allergies Allergy/AdvReac Type Severity Reaction Status Date / Time ciprofloxacin Allergy Hives Verified 01/13/24 14:44 Vital Signs Vital Signs - 24 hr 02/01/24 05:37 02/01/24 06:29 02/01/24 06:31 Temperature Pulse Rate 91 Blood Pressure 112/68 Pulse Oximetry 98 Oxygen Delivery Room Air 02/01/24 06:32 02/01/24 06:34 02/01/24 06:39 Temperature Pulse Rate 131 H Blood Pressure 124/106 H Pulse Oximetry 97 97 Oxygen Delivery 02/01/24 06:41 02/01/24 06:44 02/01/24 06:45 Temperature 97.9 F Pulse Rate 94 97 Blood Pressure 108/67 109/68 Pulse Oximetry 98 Oxygen Delivery 02/01/24 06:49 02/01/24 06:54 02/01/24 06:59 Temperature Pulse Rate Blood Pressure Pulse Oximetry 97 97 98 Oxygen Delivery 02/01/24 07:00 02/01/24 07:04 02/01/24 07:09 Temperature Pulse Rate 88 Blood Pressure 101/59 L Pulse Oximetry 98 100 Oxygen Delivery 02/01/24 07:14 02/01/24 07:15 02/01/24 07:19 Temperature Pulse Rate 94 Blood Pressure 105/64 Pulse Oximetry 100 100 Oxygen Delivery 02/01/24 07:24 02/01/24 07:29 02/01/24 07:34 Temperature Pulse Rate Blood Pressure Pulse Oximetry 100 100 100 Oxygen Delivery Exam Const: General: cooperative, healthy appearing and comfortable Nutritional Appearance: average body habitus Orientation/consciousness: oriented to person, oriented to place and oriented to time HENMT: Head: normal to inspection Resp: Effort & Inspection: normal respiratory effort Cardio: Rate: regular rate Rhythm: regular rhythm Heart sounds: S1 normal heart sound present and S2 normal heart sound present GI: Inspection: normal to inspection ( Gravid soft uterus) : External Female Exam: normal external appearance Speculum Exam - Vagina: normal appearance of the vagina Speculum Exam - Cervix: normal appearance of the cervix ( 3/80/1. AROM clear. FHTs were reassuring) H&P: Results Labs Labs: Short CBC 02/01/24 Range/Units 05:53 WBC 10.0 (4.5-10.0) K/mm3 Hgb 12.4 (12.0-15.0) g/dL Hct 38.4 (37.0-47.0) % Plt Count 164 (150-375) k/mm3 Assessment and Plan Assessment and plan (1) Term : Code(s): Z34.90 - Encounter for supervision of normal , unspecified, unspecified trimester Status: Acute Assessment and Plan: medical induction of labor. Spontaneous vaginal delivery is expected. She is an epidural candidate
[2024-02-01 10:32] LABS: Rapid Plasma Reagin Non-Reactive (NonReactive)
--- NOTE | 2024-02-01 12:20 | PM.OBPNLAB ---
Pain Control Date/time seen: 02/01/24 12:20 Pain control: tolerating well and epidural Pelvic Exam Dilation (cm): 5 Effacement (%): 90 station: -1
[2024-02-01 13:15] LABS: Amphetamine Screen Urine Negative (Negative); Barbiturate Screen Urine Negative (Negative); Benzodiazepines Screen Urine Negative (Negative); Cannabinoid Screen Urine Negative (Negative); Cocaine Screen Urine Negative (Negative); Methadone Screen Urine Negative (Negative); Opiate Screen Urine Negative (Negative); Phencyclidine Screen Urine Negative (Negative)
[2024-02-01] MEDS: ACETAMINOPHEN 500 MG TABLET 1000 MG PO (15:43)
--- NOTE | 2024-02-01 16:13 | P.PCNOB_ITS ---
OB - Vaginal Delivery Note Procedure Delivery date: 02/01/24 Events: Elective Induction of Labor Induction method: AROM Delivery augmentation: Pitocin Delivery monitor: External FHT and External Uterine Route of delivery: Episiotomy description: None Laceration Description: None Specimen: No Quantitative Blood Loss (ml): 161 Anesthesia type: Epidural Disposition: Floor Complications: No immediate complications Narrative: Patient was admitted for induction of labor at term reversal rupture membranes performed the morning as to progress remarkable for stage of labor she had epidural anesthesia placed when she was complete she pushed delivered the head spontaneously in the CHERYLE position. Anterior posterior shoulder delivered spontaneously. Cord clamped x2 and cut. In the passed off the table given Apgars of 8 [id number] 9 [id number]. Cord blood was drawn. Placenta delivered intact spontaneously. Twenty of Pitocin placed IV to help firm the uterus. After aspect the lateral sidewalls no tears or lacerations were noted. Mom and baby uterine fine time of dictation [place] Baby Date of : 02/01/24 Time of : 15:58 Gestational Age by Date: 39 Infant gender: Male presentation: vertex position: Right Occiput Anterior Placenta delivery description: Spontaneous Cord Vessel Description: 3 Vessels score one minute: 9 score five minutes: 9
[2024-02-01] MEDS: OXYTOCIN 30 UNITS/NS 500 ML 30 UNITS/500 ML BAG 125 UNITS IV CONT (16:14)
--- NOTE | 2024-02-01 16:15 | PM.OBPRVD ---
OB - Vaginal Delivery Note Procedure Delivery date: 02/01/24 Events: Elective Induction of Labor Laceration Description: None Anesthesia type: Epidural Baby Date of : 02/01/24 Time of : 15:58 Gestational Age by Date: 39 gender: Male presentation: vertex position: Right Occiput Anterior Placenta delivery description: Spontaneous Cord Vessel Description: 3 Vessels score one minute: 9 score five minutes: 9
--- NOTE | 2024-02-01 16:15 | PM.DS ---
DS: Admitting Diagnosis Discharge Date 02/02/2024 Admitting Diagnosis term DS: Discharge Diagnosis Discharge Diagnosis (1) Term : Code(s): Z34.90 - Encounter for supervision of normal , unspecified, unspecified trimester Status: Acute DS: Summary Hospital Course Reason for hospitalization: patient was admitted for induction of labor on and underwent spontaneous vaginal delivery under epidural anesthesia. Hospital Course: Patient's hospital course Was unremarkable. She was voiding without difficulty i she was without complaints. she remained afebrile. She was up, eating regular diet, ambulating, generally without complaints. Time Spent with Patient Time attestation: Total time spent providing and/or coordinating discharge services: Exam Const: General: cooperative, healthy appearing and comfortable Nutritional Appearance: average body habitus Orientation/consciousness: oriented to person, oriented to place and oriented to time HENMT: Head: normal to inspection Resp: Effort & Inspection: normal respiratory effort Cardio: Rate: regular rate Rhythm: regular rhythm Heart sounds: S1 normal heart sound present and S2 normal heart sound present GI: Inspection: normal to inspection ( Fundus firm below the umbilicus) DS: Data Data Completed and Pending Labs on day of discharge: Labs from last 24 hours 02/01/24 02/01/24 12:44 05:53 WBC 10.0 RBC 4.28 Hgb 12.4 Hct 38.4 MCV 89.7 MCH 29.0 MCHC 32.3 RDW 13.8 Plt Count 164 MPV 11.2 H Immature Gran % (Auto) 0.5 Neut % (Auto) 62.7 Lymph % (Auto) 25.4 Norton % (Auto) 10.4 H Eos % (Auto) 0.7 Baso % (Auto) 0.3 Lymph # (Auto) 2.53 [place] # (Auto) 1.0 H Eos # (Auto) 0.1 Baso # (Auto) 0.0 Abs Immat Gran (auto) 0.05 H Absolute Neuts (auto) 6.3 Absolute Nucleated RBC 0.000 Nucleated RBC % 0.0 Urine Opiates Screen Negative Urine Methadone Screen Negative Ur Barbiturates Screen Negative Ur Phencyclidine Scrn Negative Ur Amphetamine Screen Negative U Benzodiazepines Scrn Negative Urine Cocaine Screen Negative U Cannabinoids Screen Negative RPR Non-reactive HIV 1&2 Ab/P24 Ag 4thGn Negative Blood Type B Positive Antibody Screen Negative Discharge Plan Discharge Attending physician on discharge: Gordon Mendez Discharging Clinician: Gordon Mendez Patient Disposition: Home, Self-Care Activity: may shower, no straining and pelvic rest Diet: heart healthy Discharge Instructions: Education: Mom and Baby Guide Given to: Mother Follow-Up: Call your delivering provider's office for an appointment to be seen in: 6 Weeks Mom and baby should come to the [facility] for the follow-up appointment. Appointment Date/Time: February 03, 2024 at 12:00 pm What to expect at your follow-up visit: Blood Pressure Check Call [phone] if you are unable to keep your appointment time. BREAST CARE: * Wear a snug supportive bra. * For engorgement discomfort: Breast Feeding: * Apply warm moist washcloths * Express milk as needed to relieve engorgement * Wear loose clothing Bottle Feeding: * May apply ice packs * For sore nipples: * Identify correct latch-on * Apply warm moist washcloths before and after nursing * Air dry nipples after nursing * May apply Lansinoh cream to nipples ABDOMINAL INCISION: (if applicable) * Allow incision to air dry * Do NOT use lotions for powders on your incision * When showering, allow soap and water to run over the incision, but do not wash incision EPISIOTOMY/PERINEAL CARE: * Until bleeding stops, use your isa bottle after urinating * Change your pad frequently throughout the day * You may take sitz baths several times a day (fill your bathtub with warm water and soak for 20 minute
--- NOTE | 2024-02-01 19:52 | PC.NURSE ---
Patient transferred to post room # [id number] via (W/C ). Support person present. Oriented to unit, room, information board, rooming in, admission packet and security measures. Parents verbalizes understanding.
[2024-02-02 01:16] VITALS: BP 134/47; PULSE 89; RESP 18; TEMP 36.4; O2SAT 99
[2024-02-02 05:53] LABS: Hemoglobin 10.3 g/dL (12.0-15.0)
--- NOTE | 2024-02-02 07:17 | PM.OBPNVD ---
OB - PN: Subj Subjective Date/time seen: 02/02/24 07:17 Patient comments: no complaints and pain well controlled baby status: doing well OB - PN: Obj Data Labs 02/02/24 05:30 Labs: Laboratory Results - last 24 hr 02/01/24 02/01/24 02/02/24 05:53 12:44 05:30 Hgb 10.3 L Hct 32.0 L Urine Opiates Screen Negative Urine Methadone Screen Negative Ur Barbiturates Screen Negative Ur Phencyclidine Scrn Negative Ur Amphetamine Screen Negative U Benzodiazepines Scrn Negative Urine Cocaine Screen Negative U Cannabinoids Screen Negative RPR Non-reactive Blood Type B Positive Antibody Screen Negative OB - PN A/P Plan day: 1 Plan: routine care Time Spent With Patient Time: Total time spent is greater than 50% in coordination of care (as documented) at patient's floor/unit and/or counseling patient: Time with patient: less than 15 minutes Exam Const: General: cooperative, healthy appearing and comfortable Nutritional Appearance: average body habitus Orientation/consciousness: oriented to person, oriented to place and oriented to time HENMT: Head: normal to inspection Resp: Effort & Inspection: normal respiratory effort Cardio: Rate: regular rate Rhythm: regular rhythm Heart sounds: S1 normal heart sound present and S2 normal heart sound present GI: Inspection: normal to inspection
[2024-02-02 07:40] VITALS: BP 121/69; PULSE 84; RESP 16; TEMP 37.2; O2SAT 98
[2024-02-02] MEDS: WITCH HAZEL 40 PADS 1 PAD TOPICAL (08:23)
[2024-02-02] MEDS: DOCUSATE SODIUM 100 MG CAPSULE PO (08:24)
[2024-02-02] MEDS: MULTIVIT/MIN/PREN/FOL AC/IRON TABLET 1 TAB PO (08:24)
--- NOTE | 2024-02-02 08:55 | PC.NURSE ---
Mother verbalizes she is able to independently latch with appropriate positioning and alignment. She says she has some nipple discomfort with initial latch on and is responsively . is currently meeting outcomes for weight, output, jaundice, blood sugar and feeding frequencies of 8-12 times in 24 hours. Mother has a hand pump and is expressing a good amount of milk to give baby. The flange size is appropriate and we discussed that pumping should not hurt. He is sleepy after circumcision. She says she would like to put baby to breast and provide pumped milk in a bottle. We discussed volumes for newborns, increasing amounts as needed. Mother declines any additional assistance or education at this time. Mother is encouraged to call for assistance if her doesn?t latch, pain with latching, questions or concerns. Mother voiced understanding of information shared along with the mom/baby guide for an additional resource. Reported to the Primary RN.
--- NOTE | 2024-02-02 11:05 | PC.NURSE ---
Mother called the phone with questions. When entering the room, mom says she has a blister on her right nipple and it is painful. The skin on the nipple is intact and the blister is small. She admits that the latch is painful, especially at the end of the feeding when baby is sleepy and slips to the nipple. Encouraged mom to be diligent with maintaining a deep latch. Advised on nipple healing, air drying with breastmilk, and using lanolin after. Mother verbalized her understanding of education provided.
[2024-02-02 12:38] VITALS: BP 108/60; PULSE 88; RESP 16; TEMP 37.5; O2SAT 97
--- NOTE | 2024-02-02 13:01 | WPDANLDPN2 ---
Anes-Prog Note L&D Date/Time: 02/02/24 13:01 Comfortable throughout: labor and delivery Neuraxial method: epidural Epidural/Spinal procedure site: clean & non-tender Neuro status: Neuro function grossly intact. Cardiovascular status: normal Respiratory status: normal Airway patency: baseline Mental status: baseline Post-Op hydration status: normal Vital Signs: Last Vital Signs Temp 37.5 C 02/02/24 12:38 Pulse 88 02/02/24 12:38 Resp 16 02/02/24 12:38 BP 108/60 02/02/24 12:38 Pulse Ox 97 02/02/24 12:38 O2 Del Method Room Air 02/01/24 20:40 Pain score (VAS): 3/10 I/O: Intake & Output 02/01/24 02/02/24 02/02/24 23:59 07:59 15:59 Output Total 1145 Balance -1145 Post-procedural complaints: none Patient feedback: Patient satisfied with anesthetic care.
--- NOTE | 2024-02-02 13:18 | PC.NURSE ---
1240 Patient complaining of seeing light spots if she looks left, does not occur if she look straight ahead or to the right, she thinks its due to the blinds being open and TV is bright, no headache or dizziness and vitals are WNL. 1315 Patient up and walking in the halls, no longer seeing the light spots, patient doing well.
[2024-02-03 12:25] VITALS: BP 99/57; PULSE 92; RESP 18; TEMP 37.1; O2SAT 100
== END 2024-02-02 19:04 | disposition home or self-care (01) | DRG 807 ==
LOC: ANHLDR 16:18 → ANHOB2 20:10
PROVIDERS: Admitting Provider Obstetrics & Gynecology; Visit Provider Obstetrics & Gynecology
DX: O80 Encounter for full-term uncomplicated delivery (principal); Z37.0 Single live birth; Z3A.39 39 weeks gestation of pregnancy
CPT/HCPCS: 36415; 80307; 85014; 85018; 85025; 86592; 86703; 86850; 86900; 86901; A9270; G0432; J2590; J2795; J7120